=== PATIENT | female | born 1955 | race Caucasian/White ===

== ENCOUNTER 2020-10-17 10:12 | Day surgery (SDC) | payer OTHER ==
[~2020-10-17 10:12] MED LIST: KEFLEX500 MG PO; ULTRACET PO
== END 2020-10-17 17:50 | disposition home or self-care (01) ==
LOC: AMB-ENDOS 10:12
PROVIDERS: ATTEND Surgery
DX: K62.89 Other specified diseases of anus and rectum (principal); Z20.822 Contact with and (suspected) exposure to COVID-19

== ENCOUNTER 2023-05-27 13:25 | Emergency (ER) | payer OTHER ==
[~2023-05-27] VITALS: Ht 154.9 cm; Wt 59.9 kg
[2023-05-27] MEDS ORDERED: OMEPRAZOLE MAGN20 MG PO (13:42)
[2023-05-27] MEDS ORDERED: LEVOTHYROXINE25 MCG PO (13:42)
[2023-05-27] MEDS ORDERED: ZOLOFT50 MG PO (13:42)
[2023-05-27] MEDS ORDERED: LIPITOR20 MG PO (13:42)
[2023-05-27] MEDS ORDERED: EVISTA60 MG PO (13:43)
[2023-05-27] MEDS ORDERED: COZAAR50 MG PO (13:43)
[2023-05-27 14:31] LABS: HEMATOCRIT 39.5 % (36.0-45.00); HEMOGLOBIN 13.3 g/dL (12.0-15.00); MEAN CELL VOLUME 82.6 fL (80.00-100.00); MEAN CORPUSCULAR HEMOGLOBIN 27.9 pg (27.00-32.0); MEAN CORPUSCULAR HGB CONC 33.7 g/dl (32.0-36.0); PLATELET COUNT 295 K/uL (150-450); RED BLOOD COUNT 4.79 M/uL (4.00-6.00); RED CELL DISTRIBUTION WIDTH 14.3 % (11.5-14.5)
[2023-05-27 14:51] LABS: CALCIUM 9.3 mg/dL (8.5-10.1); CREATININE SERUM 0.79 mg/dL (0.55-1.02); GFR 72.81; POTASSIUM 4.02 mEq/L (3.5-5.1)
[2023-05-27 15:08] LABS: PH,URINE 5.5 (5.0-8.0); URINE APPEARANCE Clear; URINE BILIRRUBIN Negative (NEGATIVE); URINE BLOOD Negative; URINE COLOR Yellow; URINE GLUCOSE Negative (NEGATIVE); URINE LEUKOCYTE Negative; URINE NITRATE Negative; URINE PROTEIN Negative (NEGATIVE); URINE UROBILINOGEN 0.2 E.U./dl
[2023-05-27 15:11] LABS: URINE WBC 2.4 uL (0.0-23.2)
[2023-05-27 15:30] LABS: URINE BACTERIA 0 uL (0.0-1933)
== END 2023-05-27 18:05 | disposition home or self-care (01) ==
LOC: ER 13:26
PROVIDERS: Emergency Medicine
DX: K62.5 Hemorrhage of anus and rectum (principal); E78.00 Pure hypercholesterolemia, unspecified; E03.9 Hypothyroidism, unspecified; I10 Essential (primary) hypertension
CPT/HCPCS: 36415; 74177; 96365; 96366; 99284; J1885; J7030; Q9965

== ENCOUNTER 2024-08-23 06:15 | Day surgery (SDC) | payer OTHER ==
[2024-08-16 13:30] VITALS: BP 128/83
[2024-08-16 13:35] LABS: PH,URINE 7.5 (5.0-8.0); URINE APPEARANCE Clear; URINE BILIRRUBIN Negative (NEGATIVE); URINE BLOOD Negative; URINE COLOR Yellow; URINE GLUCOSE Negative (NEGATIVE); URINE KETONE Negative (NEGATIVE); URINE LEUKOCYTE Trace; URINE NITRATE Negative; URINE PROTEIN Negative (NEGATIVE); URINE UROBILINOGEN 0.2 E.U./dl
[2024-08-16 13:36] LABS: HEMATOCRIT 39.5 % (36.0-45.00); HEMOGLOBIN 12.9 g/dL (12.0-15.00); MEAN CELL VOLUME 78.2 fL (80.00-100.00); MEAN CORPUSCULAR HEMOGLOBIN 25.5 pg (27.00-32.0); MEAN CORPUSCULAR HGB CONC 32.6 g/dl (32.0-36.0); PLATELET COUNT 326 K/uL (150-450); RED BLOOD COUNT 5.05 M/uL (4.00-6.00); RED CELL DISTRIBUTION WIDTH 15.9 % (11.5-14.5)
[2024-08-16 13:38] LABS: URINE EPITHELIAL CELLS 4.4 uL (0.0-38.8); URINE RBC 32.8 uL (0.0-20.8); URINE WBC 6.4 uL (0.0-23.2)
[2024-08-16 13:43] LABS: URINE BACTERIA 1.2 uL (0.0-1933)
[2024-08-16 13:58] LABS: ALBUMIN 3.8 gm/dL (3.4-5.0); BILIRUBIN TOTAL 0.53 mg/dL (0.3-1.2); CALCIUM 9.4 mg/dL (8.5-10.1); CREATININE SERUM 0.7 mg/dL (0.55-1.02); GFR 83.46; GLOBULINA 4.5 G/DL (2.4-3.5); POTASSIUM 3.79 mEq/L (3.5-5.1); TOTAL PROTEIN 8.3 gm/dL (6.4-8.2)
[2024-08-16 14:07] LABS: PARTIAL THROMBOPLASTIN TIME 27.3 SECONDS (22.0-34.0); PROTHROMBIN TIME 10.9 SECONDS (9.0-11.5)
[~2024-08-23] VITALS: Ht 154.9 cm; Wt 63.0 kg
[~2024-08-23 06:15] MED LIST changes: +COZAAR50 MG PO; +EVISTA60 MG PO; +IMODIUM A-D2 M2 PO; +LEVOTHYROXINE25 MCG PO; +LIPITOR20 MG PO; +OMEPRAZOLE MAGN20 MG PO; +WELLBUTRIN SR100 MG PO; +ZOLOFT50 MG PO
[2024-08-23] MEDS ORDERED: CEFAZOLIN SODIUM 1,000 MG VIAL IV ONE (08:30)
[2024-08-23] MEDS ORDERED: TRAM1TAB98 PO (09:06)
== END 2024-08-23 12:20 | disposition home or self-care (01) ==
LOC: CIR.AMB 06:15
PROVIDERS: ATTEND Surgery
DX: T85.113A Breakdown (mechanical) of implanted electronic neurostimulator, generator, initial encounter (principal); T85.191A Other mechanical complication of implanted electronic neurostimulator of peripheral nerve electrode (lead), initial encounter; R15.9 Full incontinence of feces; I10 Essential (primary) hypertension; E03.8 Other specified hypothyroidism; M19.90 Unspecified osteoarthritis, unspecified site; M81.0 Age-related osteoporosis without current pathological fracture; K21.9 Gastro-esophageal reflux disease without esophagitis